=== PATIENT | female | born 1980 | race Two or more races ===

== ENCOUNTER 2021-01-12 22:55 | Emergency (ER) | payer OTHER ==
[~2021-01-12] VITALS: Ht 154.9 cm; Wt 68.0 kg
[2021-01-13] MEDS ORDERED: KETO10TA2 PO (01:56)
[2021-01-13] MEDS ORDERED: MUPIROCIN15 GM TOP (02:01)
[2021-01-13] MEDS ORDERED: DUI500 PO (02:02)
== END 2021-01-13 02:18 ==
LOC: ER 22:55
DX: S92.511A Displaced fracture of proximal phalanx of right lesser toe(s), initial encounter for closed fracture (principal); S90.811A Abrasion, right foot, initial encounter; W18.39XA Other fall on same level, initial encounter; Y93.01 Activity, walking, marching and hiking; Y92.488 Other paved roadways as the place of occurrence of the external cause; Y99.8 Other external cause status